=== PATIENT | female | born 1995 | race Caucasian/White ===

== ENCOUNTER 2018-01-03 11:03 | Emergency (ER) | payer OTHER ==
[~2018-01-03] VITALS: Ht 170.2 cm; Wt 85.8 kg
[~2018-01-03 11:03] MED LIST: ACETAMINOPHEN500 MG PO; ATARAX10 MG PO; AZITHROMYCIN500 M1 PO; FLOMAX0.4 MG PO; FLUOXETINE HCL20 MG PO; KEFLEX500 MG PO; NAPROXEN500 MG PO; OMEPRAZOLE40 M1 PO; OXAYDO5 MG PO; PERCOCET 5/31 TABLET PO; TRAZODONE HCL50 MG PO; WELLBUTRIN100 MG PO; ZOFRAN ODT4 MG PO
[2018-01-03 12:13] LABS: HEMATOCRIT 38.9 % (36.0-46.0); HEMOGLOBIN 13.2 G/DL (11.9-15.5); MCH 31.3 PG (29.0-34.0); MCHC 33.9 G/DL (30.0-36.0); MCV 92.2 FL (83-99); PLATELET COUNT 257 K/uL (156-360); RBC DIS.WIDTH-CV 13.1 % (11.8-14.6); RBC DIS.WIDTH-SD 44.5 % (39-53); RED BLOOD COUNT 4.22 M/uL (3.80-5.20); WHITE BLOOD COUNT 9.5 K/uL (4.1-10.2)
[2018-01-03 12:28] LABS: ALBUMIN 4.4 g/dL (3.2-4.8); CHLORIDE 109 mEq/L (99-109); POTASSIUM 3.8 mEq/L (3.7-5.4); SODIUM 143 mEq/L (136-147)
[2018-01-03 12:30] LABS: GLUCOSE 86 mg/dL (70-99); TOTAL PROTEIN 7.5 g/dL (6.4-8.3)
[2018-01-03 12:32] LABS: TOTAL BILIRUBIN 1.5 mg/dL (0.0-1.0)
[2018-01-03 12:34] LABS: ALKALINE PHOSPHATASE 38 IU/L (3-129); CREATININE 0.9 mg/dL (0.6-1.3); GFR ESTIMATE (CALCULATED) > 59 mL/min/
[2018-01-03 12:35] LABS: AST (GOT) 17 IU/L (2-34); UREA NITROGEN (BUN) 14 mg/dL (9-23)
[2018-01-03 12:36] LABS: APPEARANCE CLEAR ((CLEAR)); BILIRUBIN NEGATIVE; BLOOD MODERATE; COLOR YELLOW ((YELLOW)); GLUCOSE (STRIP) NEGATIVE; KETONES 80; LEUKOCYTES NEGATIVE; NITRITE NEGATIVE; PROTEIN (STRIP) NEGATIVE; SPECIFIC GRAVITY 1.025 (1.000-1.030); UROBILINOGEN 0.2 MG/DL (0.2-1.0)
[2018-01-03 12:37] LABS: ALT (GPT) 15 IU/L (3-49)
[2018-01-03 12:40] LABS: BACTERIA RARE /HPF; CALCIUM OXALATE CRYSTALS 2+ /HPF; EPITHELIAL CELLS RARE /HPF; MUCUS TRACE /LPF; RED BLOOD CELLS 0-5 /HPF (0-5); UCUL ADDED? NO; WHITE BLOOD CELLS 0-5 /HPF (0-5)
[2018-01-03 12:47] LABS: QUANTITATIVE HCG < 4.0 MIU/ML
[2018-01-03 13:30] VITALS: BP 151/89
== END 2018-01-03 12:33 | disposition left against medical advice (07) ==
LOC: EME 11:03
DX: R11.0 Nausea (principal); Z53.21 Procedure and treatment not carried out due to patient leaving prior to being seen by health care provider
CPT/HCPCS: 80053; 81003; 84702; 85027